=== PATIENT | male | born 1970 | race Caucasian/White ===

== ENCOUNTER 2016-09-02 05:46 | Inpatient (IN) | payer OTHER ==
--- NOTE | 2016-08-11 08:34 | PAT Medication Instructions ---
Service Date August 11, 2016. Current Home Medication List Acetaminophen (Tylenol), 650 MG PO Q6 PRN for Pain Atorvastatin (Lipitor), 2 TAB PO QAM Cyclobenzaprine Hcl (Flexeril), 10 MG PO TID PRN for Muscle Spasms Ibuprofen Tab (Motrin), 400 MG PO Q6 PRN for Pain Lisinopril (Zestril), 2.5 MG PO QAM Loratadine (Claritin), 10 MG PO QAM Metformin Hcl (Glucophage), 500 MG PO BID Omeprazole (Prilosec), 20 MG PO QAM Medication Instructions For Your Scheduled Surgery - Hold the following medications 48 hours prior to surgery: Metformin Hcl (Glucophage), 500 MG PO BID - Hold the following medications the morning of surgery: Ibuprofen Tab (Motrin), 400 MG PO Q6 PRN for Pain (not told to stop by surgeon) Lisinopril (Zestril), 2.5 MG PO QAM Loratadine (Claritin), 10 MG PO QAM Cyclobenzaprine Hcl (Flexeril), 10 MG PO TID PRN for Muscle Spasms - Take the following medications the morning of surgery with a sip of water: Omeprazole (Prilosec), 20 MG PO QAM Acetaminophen (Tylenol), 650 MG PO Q6 PRN for Pain (if needed) Atorvastatin (Lipitor), 2 TAB PO QAM - Take the following medications as scheduled the night before surgery: Cyclobenzaprine Hcl (Flexeril), 10 MG PO TID PRN for Muscle Spasms If you have any questions please call us at [phone] or [phone] ( Tamie) or [phone]
--- NOTE | 2016-08-11 09:28 | DIAGNOSTIC IMAGING REPORT ---
CHEST PREADMISSION(PA/LAT) CLINICAL HISTORY: Preoperative evaluation. COMPARISON STUDY: Chest radiograph June 25, 2014. FINDINGS: Lung volumes are normal. Lungs are clear. There is no pneumothorax or pleural effusion. Cardiomediastinal silhouette is normal. There is no evidence of pulmonary edema. IMPRESSION: No acute cardiopulmonary findings. Electronically signed by: Bharat Fish M.D. 08/11/2016 9:27 AM Dictated Date/Time: 08/11/2016 9:27 AM
[2016-08-11 09:35] LABS: BASO % 0.3 %; BASO ABS # 0.02 K/uL (0-0.2); COMPLETE YES; EOS % 2.2 %; HEMATOCRIT 46.1 % (42-52); IG% 0.3 %; LYMPH % 25.7 %; LYMPH ABS # 1.74 K/uL (1.2-3.4); MEAN CELL VOLUME 93.1 fL (80-100); MEAN CORPUSCULAR HEMOGLOBIN 31.5 pg (25-34); MEAN CORPUSCULAR HGB CONC 33.8 g/dl (32-36); MONO % 5.8 %; NEUT % 65.7 %; PLATELET COUNT 237 K/uL (130-400); RED BLOOD COUNT 4.95 M/uL (4.7-6.1); WHITE BLOOD COUNT 6.78 K/uL (4.8-10.8)
[2016-08-11 10:28] LABS: BUN/CREATININE RATIO 18.6 (10-20); CALCIUM 9.1 mg/dl (8.5-10.1); CREATININE 0.94 mg/dl (0.60-1.40); POTASSIUM 4.7 mmol/L (3.5-5.1)
[2016-08-11 12:52] LABS: URINE APPEARANCE CLEAR (CLEAR); URINE BILIRUBIN NEG (NEG); URINE COLOR YELLOW; URINE NITRITE NEG (NEG); URINE SPECIFIC GRAVITY 1.024 (1.000-1.030); UROBILINOGEN NEG (NEG)
[2016-08-11 12:54] LABS: MANUAL MICROSCOPIC REQUIRED? NO; REVIEW REQ? NO
[2016-09-02] VITALS (9 sets, daily range): BP systolic 106–146; BP diastolic 60–87; PULSE 62–80; TEMP 36.6–36.8; O2SAT 94–100; Ht 177.8 cm; Wt 96.9 kg
[~2016-09-02] VITALS: Ht 177.8 cm; Wt 96.9 kg
[~2016-09-02 05:46] MED LIST: ACET-1311 PO; ATOR-22 PO; CLR10 PO; CYCL10TA6 PO; GLC/500 PO; IBUP-1449 PO; LISI-729 PO; PRLSR20 PO
[2016-09-02] MEDS ORDERED: CEFAZOLIN 2000 MG/60 ML D5W IV SCH (06:00)
[2016-09-02] MEDS ORDERED: LACTATED RINGER'S 1000ML 1,000 ML IV SCH (06:00)
[2016-09-02] MEDS ORDERED: MIDAZOLAM HCL 1 MG/ML 2ML VIAL ONE (06:39)
[2016-09-02] MEDS ORDERED: FENTANYL CITRATE INJ 50 MCG/1 ML 2 ML VIAL ONE ×2 (06:39→07:58)
--- NOTE | 2016-09-02 07:23 | History & Physical Bridge Note ---
H&P Re-Evaluation Bridge Note: I have examined the patient, reviewed the History & Physical and in the interval since the performance of the History & Physical I have noted the following changes of clinical significance: No changes noted
--- NOTE | 2016-09-02 07:24 | History and Physical ---
History & Physical Date September 02, 2016. Chief Complaint chronic back pain History of Present Illness The patient is a 46 year old male with complaints of Additional History Hepatic Disease: No Endocrine Disorder: No Kidney Disease: No Hypertension: No Heart Disease: No Bleeding Tendencies: No Infectious Diseases: No Allergies Coded Allergies: Codeine (Verified Adverse Reaction, Unknown, N/V, 09/02/16) Fluticasone (Verified Adverse Reaction, Unknown, SEVERE HEADACHE, 09/02/16) Hydrocodone (Verified Adverse Reaction, Unknown, NAUSEA, VOMITING, 09/02/16 ) Physical Examination Skin: warm/dry, no rash Eyes: normal inspection, EOMI, sclerae normal ENT: normal ENT inspection, pharynx normal Head: normocephalic, atraumatic Neck: supple, no adenopathy, trachea midline Respiratory/Chest: lungs clear, normal breath sounds, no respiratory distress Cardiovascular: regular rate, rhythm, no edema, no murmur Abdomen / GI: normal bowel sounds, non tender Back: normal inspection Extremities: normal inspection, normal range of motion Neurologic/Psych: no motor/sensory deficits, alert, normal reflexes, oriented x 3 Diagnosis chronic back pain Plan of Treatment Dorsal column stimulator trial
[2016-09-02] MEDS ORDERED: ONDANSETRON INJ 2 MG/ML 2 ML VIAL IV PRN ×2 (07:30→09:00)
[2016-09-02] MEDS ORDERED: HYDROmorphone INJ 1 MG/ML SYR IV PRN ×2 (07:30→09:00)
[2016-09-02] MEDS ORDERED: FENTANYL CITRATE INJ 50 MCG/1 ML 2 ML VIAL IV PRN (07:30)
[2016-09-02] MEDS ORDERED: EpHEDrine SULFATE INJ 50 MG/ML AMP IV PRN (07:30)
[2016-09-02] MEDS ORDERED: ATROPINE SULFATE 0.1 MG/ML 5ML SYR IV PRN (07:30)
[2016-09-02] MEDS ORDERED: HYDROmorphone INJ 2 MG/ML SYR/VIAL ONE (07:58)
[2016-09-02] MEDS: BUPIVACAINE/EPINEPHRINE 0.5% MPF 1:200,000 30 ML VIAL ONE ×2 (07:58→08:41)
[2016-09-02] MEDS: BACITRACIN 50000 UNIT VIAL ONE ×2 (08:12→08:30)
[2016-09-02] MEDS ORDERED: ONDANSETRON INJ 2 MG/ML 2 ML VIAL ONE (08:15)
[2016-09-02] MEDS ORDERED: PROPOFOL IV EMULSION 10 MG/ML 20 ML VIAL IV ONE (08:15)
[2016-09-02] MEDS ORDERED: NEOSTIGMINE METHYLSULFATE 1 MG/ML 10ML VIAL ONE (08:15)
[2016-09-02] MEDS ORDERED: LIDOCAINE HCL 2% 2 ML VIAL (20MG/ML) ONE (08:15)
[2016-09-02] MEDS ORDERED: GLYCOPYRROLATE INJ 0.2 MG/ML VIAL ONE (08:15)
[2016-09-02] MEDS ORDERED: DEXAMETHASONE SOD INJ 4 MG/ML VIAL ONE (08:15)
[2016-09-02] MEDS ORDERED: ROCURONIUM BROMIDE 10 MG/ML 5 ML VIAL ONE (08:15)
--- NOTE | 2016-09-02 08:59 | [facility] Operative Report ---
Operative Report Operative Date September 02, 2016. Pre-Operative Diagnosis Chronic back pain Procedure(s) Performed T11-T12 lami Surgeon DR. Rebeca RAYA Findings 0 Specimens none per surgeon I attest to the content of the Intraoperative Record and any orders documented therein. Any exceptions are noted below.
[2016-09-02] MEDS ORDERED: LORAZEPAM 1 MG TAB PO PRN (09:00)
[2016-09-02] MEDS ORDERED: MAGNESIUM HYDROXIDE SUSP 30 ML UDC PO PRN (09:00)
[2016-09-02] MEDS ORDERED: DO NOT ADMINISTER PNEUMOCOCCAL VACCINE PRN ×2 (09:00)
[2016-09-02] MEDS ORDERED: DO NOT ADMINISTER FLU VACCINE PRN ×3 (09:00)
[2016-09-02] MEDS: DOCUSATE SODIUM 100 MG CAP PO SCH ×2 (09:00→21:17)
[2016-09-02] MEDS ORDERED: OXYCODONE HCL IR 5 MG TAB (IMMEDIATE RELEASE) PO PRN (09:00)
[2016-09-02] MEDS ORDERED: LORAZEPAM INJ 1 MG in SYRINGE 0.5 ML IV PRN (09:00)
[2016-09-02] MEDS ORDERED: ACETAMINOPHEN 500 MG TAB PO PRN (09:00)
[2016-09-02] MEDS ORDERED: ACETAMINOPHEN 325 MG TAB PO PRN (09:00)
[2016-09-02] MEDS ORDERED: ESMOLOL HCL 10 MG/ML 10 ML VIAL ONE (09:03)
[2016-09-02] MEDS ORDERED: KETOROLAC TROMETHAMINE 30 MG/ML VIAL ONE (09:03)
--- NOTE | 2016-09-02 09:16 | DIAGNOSTIC IMAGING REPORT ---
INTRAOPERATIVE RADIOGRAPH CLINICAL HISTORY: Spinal cord stimulator lead placement. Fluoroscopy time: 11 seconds. FINDINGS: A single spot fluoroscopic view of the thoracolumbar junction is presented. Spinal cord stimulator leads project over the lower thoracic spine, likely at the level of T9. The leads are intact as imaged. IMPRESSION: Intraoperative image from spinal cord stimulator lead placement as above. See operative report for detailed findings. Electronically signed by: Juan Barlow M.D. 09/02/2016 9:14 AM Dictated Date/Time: 09/02/2016 9:13 AM
--- NOTE | 2016-09-02 09:34 | Anesthesiology Progress Note ---
Anesthesia Post Op Note Date & Time September 02, 2016 at 09:33 Vital Signs Pain Intensity: 4 Vital Signs Past 12 Hours Date Time Temp Pulse Resp B/P Pulse Ox O2 Delivery O2 Flow Rate FiO2 09/02/16 09:25 68 20 124/74 99 Mask 10 09/02/16 09:15 76 15 137/78 100 Mask 10 09/02/16 09:05 36.1 85 16 149/85 100 Mask 10 09/02/16 06:28 36.8 70 18 130/84 97 Room Air Notes Mental Status: alert / awake / arousable, participated in evaluation Pt Amnestic to Procedure: Yes Nausea / Vomiting: adequately controlled Pain: adequately controlled Airway Patency, RR, SpO2: stable & adequate BP & HR: stable & adequate Hydration State: stable & adequate Anesthetic Complications: no major complications apparent
[2016-09-02] MEDS ORDERED: HYDROmorphone INJ 2 MG/ML SYR/VIAL IV PRN (10:30)
--- NOTE | 2016-09-02 10:42 | OPERATIVE REPORT ---
DATE OF OPERATION: 09/02/2016 PREOPERATIVE DIAGNOSIS: Chronic back pain, failed laminectomy syndrome. POSTOPERATIVE DIAGNOSIS: Same. PROCEDURE PERFORMED: 1. T11-12 laminotomy. 2. Placement of 16 lead dorsal column stimulator paddle between T9 and T10 with detachment of temporary external leads. SURGEON: Dr. Michael Rossi. ANESTHESIA: General. DISPOSITION: The patient awakened and taken to PACU in stable condition. HISTORY OF PATIENT'S PROBLEMS: This is a 46-year-old male well-known to me, who presents with above-mentioned diagnosis after failing an extensive course of nonoperative care, elected to undergo the above-mentioned procedure. Risks, benefits, pros, cons, and alternatives were outlined in detail preoperatively. PROCEDURE: The patient was met with preoperatively, the case was discussed and all the questioned were addressed. At that point, the patient was taken back to operative suite and after undergoing successful general intubation by the department of anesthesia was placed in prone position on Sahil table atop Moisés frame. All bony prominences were well padded and the eyes were inspected to ensure there was no external pressure placed upon them. At this point, the thoracolumbar spine was prepped and draped in normal sterile fashion. With the assistance of fluoroscopy, we identified the T11-12 disc space. Midline incision was created overlying this region. Sharp dissection with the assistance of Bovie cautery was performed down to and exposing the T10-T11 space. I then performed a small laminotomy of T11 large enough to place a dorsal column stimulator paddle proximally between T9 and 10. We verified our placement with fluoroscopy. I then sewed the lead into position, attached to the external leads and with the trocar ran the leads to the left flank. We then attached it to an external device testing its efficacy. Once this was established, copiously irrigated laminotomy site and closed with subcutaneous Vicryl, 4-0 Monocryl for final skin closure. Steri-Strips and sterile dressing placed. The patient was awakened and taken to PACU in stable condition. I attest to the content of the Intraoperative Record and any orders documented therein. Any exceptio ns are noted below.
[2016-09-02] MEDS: SODIUM CHLORIDE 0.9% 1000ML 1,000 ML IV SCH ×2 (11:14→21:18)
[2016-09-02] MEDS: CEFAZOLIN IV 2,000 MG in DEXTROSE 5% 50ML 50 ML IV SCH ×2 (16:10→23:45)
[2016-09-03 03:59] VITALS: BP 123/70; PULSE 85; TEMP 36.7; O2SAT 97
[2016-09-03 07:00] VITALS: BP 121/75; PULSE 65; TEMP 36.7; O2SAT 100
[2016-09-03 08:00] VITALS: O2SAT 100
--- NOTE | 2016-09-03 08:16 | PROGRESS NOTE ---
DATE: 09/03/2016 Postop day 1. We had discussion today regarding his results from the temporary dorsal column stimulator placement. He feels he is getting significant pain relief. He is up and ambulatory. Again, symptoms markedly improved. At this time, we will plan to move forward with formal placement and insertion of battery. We will make him n.p.o. after midnight.
[2016-09-03] MEDS: CEFAZOLIN IV 2,000 MG in DEXTROSE 5% 50ML 50 ML IV SCH (08:46)
[2016-09-03] MEDS: DOCUSATE SODIUM 100 MG CAP PO SCH ×2 (08:47→21:40)
--- NOTE | 2016-09-03 09:37 | Anesthesiology Progress Note ---
Anesthesia Post Op Note Date & Time Sep 03, 2016 at 09:36 Vital Signs Pain Intensity: 1.0 Vital Signs Past 12 Hours Date Time Temp Pulse Resp B/P (MAP) Pulse Ox O2 Delivery O2 Flow Rate FiO2 09/03/16 07:00 36.7 65 16 121/75 (90) 100 Room Air 09/03/16 03:59 36.7 85 16 123/70 (87) 97 Room Air 09/02/16 23:48 Room Air 09/02/16 23:32 36.7 68 16 118/63 (81) 95 Room Air Notes Mental Status: alert / awake / arousable, participated in evaluation Pt Amnestic to Procedure: Yes Nausea / Vomiting: adequately controlled Pain: adequately controlled Airway Patency, RR, SpO2: stable & adequate BP & HR: stable & adequate Hydration State: stable & adequate Anesthetic Complications: no major complications apparent
[2016-09-03 15:10] VITALS: BP 133/81; PULSE 60; TEMP 37; O2SAT 100
[2016-09-03 23:47] VITALS: BP 106/66; PULSE 73; TEMP 36.9; O2SAT 94
[2016-09-04] VITALS (7 sets, daily range): BP systolic 135–154; BP diastolic 84–99; PULSE 61–71; TEMP 36.5–36.9; O2SAT 94–99
[2016-09-04] MEDS ORDERED: BISACODYL 5 MG TABEC PO PRN (06:00)
[2016-09-04] MEDS ORDERED: BISACODYL 10 MG SUPP PR PRN (06:00)
[2016-09-04] MEDS ORDERED: MIDAZOLAM HCL 1 MG/ML 2ML VIAL ONE (06:41)
[2016-09-04] MEDS ORDERED: FENTANYL CITRATE INJ 50 MCG/1 ML 2 ML VIAL ONE ×2 (06:41→09:03)
[2016-09-04] MEDS ORDERED: EpHEDrine SULFATE INJ 50 MG/ML AMP IV PRN (07:00)
[2016-09-04] MEDS ORDERED: ATROPINE SULFATE 0.1 MG/ML 5ML SYR IV PRN (07:00)
[2016-09-04] MEDS ORDERED: ONDANSETRON INJ 2 MG/ML 2 ML VIAL IV PRN (07:00)
[2016-09-04] MEDS ORDERED: HYDROmorphone INJ 1 MG/ML SYR IV PRN (07:00)
[2016-09-04] MEDS ORDERED: FENTANYL CITRATE INJ 50 MCG/1 ML 2 ML VIAL IV PRN (07:00)
[2016-09-04] MEDS ORDERED: BACITRACIN 50000 UNIT VIAL ONE (07:03)
[2016-09-04] MEDS ORDERED: BUPIVACAINE/EPINEPHRINE 0.5% MPF 1:200,000 30 ML VIAL ONE (07:03)
[2016-09-04] MEDS ORDERED: CEFAZOLIN IV 2,000 MG/60 ML D5W IV ONE (07:06)
[2016-09-04] MEDS ORDERED: NURSING VERBAL MED ORDER ONE (08:00)
[2016-09-04] MEDS ORDERED: POLYETHYLENE (MIRALAX) 17 GM PACK PO SCH (09:00)
[2016-09-04] MEDS ORDERED: HYDROmorphone INJ 2 MG/ML SYR/VIAL ONE (09:03)
[2016-09-04] MEDS ORDERED: NEOSTIGMINE METHYLSULFATE 1 MG/ML 10ML VIAL ONE (09:05)
[2016-09-04] MEDS ORDERED: ONDANSETRON INJ 2 MG/ML 2 ML VIAL ONE (09:05)
[2016-09-04] MEDS ORDERED: DEXAMETHASONE SOD INJ 4 MG/ML VIAL ONE (09:05)
[2016-09-04] MEDS ORDERED: ROCURONIUM BROMIDE 10 MG/ML 5 ML VIAL ONE (09:05)
[2016-09-04] MEDS ORDERED: LIDOCAINE HCL 2% 2 ML VIAL (20MG/ML) ONE (09:05)
[2016-09-04] MEDS ORDERED: GLYCOPYRROLATE INJ 0.2 MG/ML VIAL ONE (09:05)
[2016-09-04] MEDS ORDERED: PROPOFOL IV EMULSION 10 MG/ML 20 ML VIAL IV ONE (09:05)
[2016-09-04] MEDS ORDERED: EpHEDrine SULFATE 50MG/5ML SYR ONE (09:05)
--- NOTE | 2016-09-04 09:15 | [facility] Operative Report ---
Operative Report Operative Date Sep 04, 2016. Pre-Operative Diagnosis Chronic back pain Post-Operative Diagnosis same Procedure(s) Performed insertion of battery Surgeon Dr. Rossi Lpn Cma Surgeon(s) Evangelista Goldman Estimated Blood Loss 10 ml Findings none Specimens None per Surgeon I attest to the content of the Intraoperative Record and any orders documented therein. Any exceptions are noted below.
--- NOTE | 2016-09-04 09:16 | Discharge Instructions ---
Discharge Instructions Date of Service Sep 04, 2016. Admission Reason for Admission: Chronic Pain Syndrome Discharge Discharge Diagnosis / Problem: chrnonic back pain Discharge Goals Goal(s): Improve function Activity Recommendations Activity Limitations: per Instructions/Follow-up section . Instructions / Follow-Up Instructions / Follow-Up ACTIVITY RECOMMENDATIONS: SELF CARE INSTRUCTIONS AFTER A LAMINECTOMY 1. No prolonged sitting (less than 30 minutes for the first 3 weeks after surgery). 2. No bending, lifting more than 5 pounds, or twisting (roll like a log when turning in bed). 3. You may shower 3 days after surgery if no drainage from wound. Thoroughly dry wound. Do not soak in the tub. 4. Please walk as much as you can for exercise. Gradually increase the distance that you walk as your endurance increases. 5. You may drive in 7-10 days if you are comfortable and no longer requiring pain medications. SPECIAL CARE INSTRUCTIONS: VERY IMPORTANT TO READ AND REVIEW A. Your surgical incision has been closed with a cosmetic suture under the skin that will dissolve in about 6 weeks. In 14 days, you can use a pair of clean scissors and cut the suture that is left outside of the skin at the ends of your incision. B. Complications are uncommon, but please contact us if you have any signs or symptoms of: 1. wound infection (fever higher than 102.5 degrees F, redness, separation of wound, drainage, or increasing pain from the incision) 2. blood clots in legs (pain, swelling, redness and warmth in legs) 3. urinary tract infection (fever higher than 102.5 degrees, burning upon urination or increased frequency of urination) 4. nerve problems (inability to walk on your toes or heels, numbness, loss of bowel or bladder control) 5. any other symptoms that concern you. C. Please call the office at if you have any concerns or questions about your operation or recovery. MANAGING PAIN AFTER SPINAL SURGERY 1. Narcotic medication is intended for short-term use and will be provided for surgical pain. Surgical pain usually lasts for a period of 4-6 weeks. Narcotic medication includes Percocet, Vicodin, Darvocet, Tylenol #3 or Lortab. 2. Longer-term pain is more appropriately treated with non-narcotic medication such as Tylenol ES. 3. Muscle spasm is not appropriately treated with narcotics. Muscle relaxers such as Soma, Flexeril or Skelaxin can be used along with Tylenol ES. 4. Remember that we all live with some "aches and pains". This is not unusual or uncommon after an injury or as we get older. 5. We will provide appropriate medication within the normal guidelines of their prescribed use. We will also be very cautious and aware of potential abuse and extended duration of patients' medication needs. 6. Please allow 2-3 days to process refills. Prescriptions will not be mailed but must be picked up at the office. FOLLOW UP VISIT: Keep your scheduled follow-up appointment. Any questions, please call the office at . Current Hospital Diet Patient's current hospital diet: Regular Diet Discharge Diet Recommended Diet: Regular Diet Procedures Procedures Performed: Spinal Cord Stimulator Placement Pending Studies Studies pending at discharge: no Medical Emergencies . Who to Call and When: Medical Emergencies: If at any time you feel your situation is an emergency, please call 911 immediately. . Non-Emergent Contact Non-Emergency issues call your: Primary Care Provider . "Provider Documentation" section prepared by Michael Rossi. . VTE Core Measure Inpt VTE Proph given/why not?: Daphne Sousa, SCD's
[2016-09-04] MEDS ORDERED: KETOROLAC TROMETHAMINE 30 MG/ML VIAL ONE (09:19)
--- NOTE | 2016-09-04 11:44 | Anesthesiology Progress Note ---
Anesthesia Post Op Note Date & Time Sep 04, 2016 at 11:44 Vital Signs Pain Intensity: 0.0 Vital Signs Past 12 Hours Date Time Temp Pulse Resp B/P (MAP) Pulse Ox O2 Delivery O2 Flow Rate FiO2 09/04/16 11:28 36.9 71 17 151/93 (112) 98 Nasal Cannula 3.0 09/04/16 11:22 36.9 61 17 99 Room Air 09/04/16 11:00 36.9 61 17 148/88 (108) 99 Room Air 09/04/16 10:30 36.6 66 16 154/96 (115) 96 Nasal Cannula 2.0 96 09/04/16 10:30 96 Nasal Cannula 2.0 09/04/16 10:30 96 Nasal Cannula 2.0 09/04/16 10:20 36.4 63 13 152/82 93 Nasal Cannula 2 09/04/16 10:10 65 14 138/85 98 Nasal Cannula 2 09/04/16 10:00 60 11 142/90 99 Mask 10 09/04/16 09:50 65 10 143/84 100 Mask 10 09/04/16 09:44 36.5 71 13 169/91 100 Mask 10 09/04/16 05:21 36.5 69 20 135/84 (101) 98 Room Air 09/03/16 23:55 Room Air 09/03/16 23:47 36.9 73 12 106/66 (79) 94 Room Air Notes Mental Status: alert / awake / arousable, participated in evaluation Pt Amnestic to Procedure: Yes Nausea / Vomiting: adequately controlled Pain: adequately controlled Airway Patency, RR, SpO2: stable & adequate BP & HR: stable & adequate Hydration State: stable & adequate Anesthetic Complications: no major complications apparent
[2016-09-04] MEDS: DOCUSATE SODIUM 100 MG CAP PO SCH (11:54)
--- NOTE | 2016-09-04 14:15 | OPERATIVE REPORT ---
DATE OF OPERATION: 09/04/2016 PREOPERATIVE DIAGNOSES: Failed laminectomy syndrome, chronic persistent back and bilateral leg pain. POSTOPERATIVE DIAGNOSES: Same. PROCEDURE PERFORMED: Implantation of dorsal column stimulator rechargeable battery and removal of temporary leads. SURGEON: Dr. Michael Rossi. EMBEDDED SOFTWARE DEVELOPMENT ENGINEER: Sanchez Qureshi PA-C. Due to the complex nature of the procedure, the entire surgery was performed with the salon assistant of ISIDRO Liang. The inventory assistant, under direct supervision, was involved in the actual performance of all aspects of the surgical procedure including hemostasis, tissue retraction and incision, instrument management, patient positioning, and wound closure. ANESTHESIA: General. DISPOSITION: The patient awakened and taken to PACU in stable condition. DESCRIPTION OF PROCEDURE: The patient was met with preoperatively, the case discussed and all questions addressed. As he was receiving significant improvement after placement of the temporary leads for dorsal column stimulator paddle, we elected to undergo formal implantation. Risks, benefits, pros, cons, and alternatives were outlined in detail preoperatively. DESCRIPTION OF PROCEDURE: The patient was met preoperatively and the case discussed and all questions were addressed. At that point the patient was taken back to the operative suite and after undergoing successful general endotracheal intubation via the department of anesthesia was placed in prone position on Sahil table atop Moisés frame. All bony prominences were well padded and the eyes were inspected to ensure there was no external pressure placed upon them. At this point the thoracolumbar spine was prepped and draped in normal sterile fashion. We then exposed the previous laminotomy site at T11. The incision was opened, copiously irrigated with antibiotic solution. The temporary leads were detached. These were removed externally. We then passed the leads into a pocket we created on the right flank. We attached it to the battery, tested it to ensure appropriate function. The battery was then buried in the pocket. The incision was again irrigated and closed with subcutaneous Vicryl, 4-0 Monocryl for final closure. Steri-Strips and sterile dressing placed. The patient was awakened and taken to PACU in stable condition. I attest to the content of the Intraoperative Record and any orders documented therein. Any exception s are noted below.
--- NOTE | 2016-09-04 21:15 | DISCHARGE SUMMARY ---
PREOPERATIVE DIAGNOSIS: Chronic back pain, failed laminectomy syndrome. HOSPITAL COURSE FOLLOWS: On September 02, the patient underwent T11 laminotomy, placement of dorsal column stimulator paddle lead and trials leads attached. The patient tolerated this well. Noticed significant improvement and subsequently on September 04 underwent implantation of formal leads and battery. The patient tolerated this well and pain was well-controlled, and subsequently discharged home. Discharge orders and instructions found on the chart for further review. SAULO
== END 2016-09-04 13:29 | disposition home or self-care (01) | DRG 520 ==
LOC: ENRESERVDT → ENRESERVTM → C.ACU 05:46 → C.3E 09:03
PROVIDERS: ADMIT Orthopaedic Surgery Orthopaedic Surgery of the Spine; ATTEND Orthopaedic Surgery Orthopaedic Surgery of the Spine
PROC: 0JH70MZ Insertion of Stimulator Generator into Back Subcutaneous Tissue and Fascia, Open Approach (ICD-10-PCS; principal; 2016-09-02 07:45)
PROC: 00HV0MZ Insertion of Neurostimulator Lead into Spinal Cord, Open Approach (ICD-10-PCS; principal; 2016-09-02 07:45)
PROC: 00NX0ZZ Release Thoracic Spinal Cord, Open Approach (ICD-10-PCS; principal; 2016-09-02 07:45)
DX: M96.1 Postlaminectomy syndrome, not elsewhere classified (principal); G89.29 Other chronic pain; Z88.5 Allergy status to narcotic agent; Z88.8 Allergy status to other drugs, medicaments and biological substances

== ENCOUNTER → 2017-08-20 | Outpatient (CLI) | payer OTHER ==
[~2017-08-20] MED LIST changes: -ACET-1311 PO; -ATOR-22 PO; -CLR10 PO; -CYCL10TA6 PO; +GADAVIST IV PRN; -GLC/500 PO; -IBUP-1449 PO; -LISI-729 PO; -PRLSR20 PO
--- NOTE | 2017-08-20 16:13 | DIAGNOSTIC IMAGING REPORT ---
LUMBAR SPINE COMBINATION CLINICAL HISTORY: 46 years-old Male with LUMBAR RADICULOPATHY. Chronic low back pain with history of multiple back surgeries. Patient has a spinal stenotic related device. COMPARISON: None available TECHNIQUE: Multiplanar, multi sequence MRI of the lumbar spine was performed both with and without the use of 9.5 amount Gadavist FINDINGS: 14 degrees levoscoliosis of the lumbar spine measured from L1-L4. Imaged intra-abdominal, and intrapelvic structures demonstrate no acute abnormality. Extensive postoperative changes of the lumbar spine with discectomy, posterior decompression with interbody maverick and screw fusion at L2-L3. Discectomy changes with posterior decompression also noted at L3-L4 with right hemilaminectomy at L4. The posterior elements at L5 appear intact. There is a moderate sized pseudomeningocele posterior to the L4 level which measures up to 2.3 x 3.4 x 3.6 cm in AP, transverse and craniocaudal dimensions. There is moderate amount of edema/fluid within the adjacent deep and subcutaneous tissues extending from L3-L5, nicely seen on the sagittal STIR images. There is no acute fracture, focal bone marrow edema or subluxation identified. Conus medullaris terminates at T12-L1. The cauda equina at the level of the pseudomeningocele are not well seen and may partially extend into the CSF collection. Small lipoma of the filum terminale, image 18 series 7. No abnormal enhancement identified. T12-L1: No central canal or neural foraminal stenosis. Mild disc desiccation. L1-L2: Moderate facet arthrosis without central canal or neural foraminal stenosis. L2-L3: No central canal or neural foraminal stenosis. L3-L4: Central canal is patent. Mild posterior spondylitic spurring and facet arthrosis with suggestion of mild enhancing granulation tissue at the region of the right neural foramen causing mild to moderate right foraminal stenosis. There is mild left foraminal narrowing. L4-L5: Mild posterior spondylitic spurring with facet arthrosis. Findings cause mild bilateral foraminal narrowing. Central canal is patent. L5-S1: Mild intervertebral disc space narrowing with moderate facet arthrosis and minimal posterior spondylitic spurring with mild bilateral foraminal narrowing. Central canal is patent. IMPRESSION: 1. Extensive postoperative changes of the lumbar spine with discectomy, posterior decompression with interbody maverick and screw fusion at L2-L3. Discectomy changes with posterior decompression also noted at L3-L4 with prior right hemilaminectomy at L4. 2. Pseudomeningocele posterior to the L4 level measures up to 3.6 cm with cauda equina at least partially extending into the CSF collection. Moderate subcutaneous and deep tissue edema about the lower back may be postsurgical. Correlate clinically to exclude leaking pseudomeningocele. 3. No high-grade central canal or foraminal narrowing. Multilevel foraminal stenosis as described above. 4. Small lipoma of the filum terminale. The above report was generated using voice recognition software. It may contain grammatical, syntax or spelling errors. Electronically signed by: Bao Morelos M.D. 08/20/2017 4:12 PM Dictated Date/Time: 08/20/2017 3:17 PM
== END | disposition home or self-care (01) ==
LOC: C.MRI 12:57
PROVIDERS: ATTEND Physician Assistant
DX: M54.16 Radiculopathy, lumbar region (principal); Z98.1 Arthrodesis status; G96.19 Other disorders of meninges, not elsewhere classified; D17.79 Benign lipomatous neoplasm of other sites